=== PATIENT | male | born 1990 | race Asian ===

== ENCOUNTER 2018-11-14 12:18 | Emergency (ER) | payer SELFPAY ==
[~2018-11-14] VITALS: Ht 182.9 cm; Wt 72.6 kg
[2018-11-14 12:30] VITALS: Ht 182.9 cm; Wt 72.6 kg
[2018-11-14 15:18] VITALS: BP 110/65
== END 2018-11-14 15:18 | disposition home or self-care (01) ==
LOC: ED 12:18
DX: M54.42 Lumbago with sciatica, left side (principal)
CPT/HCPCS: J1885